=== PATIENT | female | born 1990 | race Caucasian/White ===

== ENCOUNTER 2017-01-06 14:27 | Emergency (ER) | payer MEDICAID, OTHER ==
[~2017-01-06] VITALS: Ht 154.9 cm; Wt 52.2 kg
[2017-01-06 14:43] VITALS: BP 116/66
[2017-01-06] MEDS ORDERED: TDAP [DIPH/PERTUSSIS/TET] 0.5 ML VIAL IM ONE ×2 (14:55→15:00)
== END 2017-01-06 15:04 | disposition home or self-care (01) ==
LOC: ER 14:30
DX: S01.511A Laceration without foreign body of lip, initial encounter (principal); S00.531A Contusion of lip, initial encounter; W01.0XXA Fall on same level from slipping, tripping and stumbling without subsequent striking against object, initial encounter; Y93.89 Activity, other specified; Y92.89 Other specified places as the place of occurrence of the external cause; Y99.8 Other external cause status
CPT/HCPCS: 90715; A4606; Z7610

== ENCOUNTER 2017-12-31 11:45 | Emergency (ER) | payer MEDICAID ==
[~2017-12-31] VITALS: Ht 154.9 cm; Wt 56.7 kg
[2017-12-31 11:56] VITALS: BP 100/59
== END 2017-12-31 12:17 | disposition home or self-care (01) ==
LOC: ER 11:49
DX: H60.502 Unspecified acute noninfective otitis externa, left ear (principal)
CPT/HCPCS: A4606; Z7610